=== PATIENT | female | born 1990 | race Caucasian/White ===

== ENCOUNTER 2022-03-25 10:39 | Emergency (ER) | payer OTHER ==
[~2022-03-25 10:39] MED LIST: SERT50TA14 PO; SUBOXONE PO; TRAZADONE PO
--- NOTE | 2022-03-25 10:41 | NUR ---
called for triage, no answer in the ER waiting room
--- NOTE | 2022-03-25 10:45 | NUR ---
called for triage, no answer in the ER waiting room
--- NOTE | 2022-03-25 10:50 | NUR ---
called for triage, no answer in the ER waiting room
== END 2022-03-25 10:50 | disposition left against medical advice (07) ==
LOC: ER 10:39
DX: Z53.21 Procedure and treatment not carried out due to patient leaving prior to being seen by health care provider (principal)